=== PATIENT | female | born 1965 | race Caucasian/White ===

== ENCOUNTER 2017-01-31 05:57 | Inpatient (IN) | payer MEDICARE, OTHER ==
[2017-01-31] MEDS ORDERED: MORPHINE SULFATE 4 MG/ML SYRINGE IV STA (06:10)
[2017-01-31] MEDS ORDERED: PANTOPRAZOLE 40 MG/10 ML VIAL IVP STA (06:10)
[2017-01-31] MEDS ORDERED: SODIUM CHLORIDE 0.9% 1,000 ML IV STA ×3 (06:10→07:01)
[2017-01-31] MEDS ORDERED: ONDANSETRON 4 MG/2 ML VIAL IVP STA (06:10)
[2017-01-31] MEDS ORDERED: SODIUM CHLORIDE 0.9% 500 ML IV STA (06:10)
[2017-01-31 06:29] LABS: Basophils # (A) 0.1 k/uL (0-0.2); Basophils % (A) 1 %; CH 27.8; CHCM 33.6; Eosinophils # (A) 0.4 k/uL (0-0.7); Eosinophils % (A) 2 %; HCT 46.6 % (34.0-46.0); HDW 2.54; HGB 15.3 gm/dL (11.4-16.0); Luc # (Auto) 0.41; Luc % (Auto) 2; Lymphocytes # (A) 3.8 k/uL (1.0-4.8); Lymphocytes % (A) 18 %; MCH 27.3 pg (25.0-35.0); MCHC 32.8 g/dL (31.0-37.0); MCV 83.3 fL (80.0-100.0); Mean Platelet Volume 7.4; Monocytes # (A) 1.1 k/uL (0-1.0); Monocytes % (A) 5 %; Neutrophils # (A) 14.8 k/uL (1.3-7.7); Neutrophils % (A) 72 %; RBC 5.59 m/uL (3.80-5.40); RDW 15.1 % (11.5-15.5); WBC 20.5 k/uL (3.8-10.6)
[2017-01-31 06:39] LABS: ALT 125 U/L (9-52); AST 101 U/L (14-36); Alkaline Phosphatase 284 U/L (38-126); Anion Gap 11 mmol/L; Blood Urea Nitrogen 13 mg/dL (7-17); Calcium 9.7 mg/dL (8.4-10.2); Carbon Dioxide 24 mmol/L (22-30); Chloride 107 mmol/L (98-107); Glucose 158 mg/dL (74-99); Non-African American GFR(MDRD) >60 (>60 ml/min/1.73 sqM); Potassium 3.7 mmol/L (3.5-5.1); Sodium 142 mmol/L (137-145); Total Bilirubin 1.6 mg/dL (0.2-1.3); Total Protein 7.6 g/dL (6.3-8.2)
[2017-01-31 06:49] LABS: Creatine Kinase 132 U/L (30-135)
--- NOTE | 2017-01-31 06:58 | ED ---
General Adult HPI - General Source: patient, RN notes reviewed, old records reviewed Mode of arrival: wheelchair Limitations: no limitations <Richard Rivers - Last Filed: 01/31/17 07:02> <Richard Onofre - Last Filed: 01/31/17 10:03> - General Chief complaint: Abdominal Pain Stated complaint: Pancreatits Time Seen by Provider: 01/31/17 06:09 - History of Present Illness Initial comments: This is a 51-year-old female to the ER for reevaluation of dull pain, severe epigastric every day regrooved garlicky [place] range her back. Natriuretic upper quadrant. Wrapping around her abdomen. Positive nausea and positive vomiting. No fevers. Patient states she's had issues volatile before , denies symptoms related to alcohol coughing may be her gallbladder. Does still have her gallbladder. No diarrhea. No change in medications. Last time she had the similar symptoms was about 3 months ago but she lives in [facility], patient is not from here. (Richard Rivers) - Related Data Home Medications Medication Instructions Recorded Confirmed Atorvastatin Calcium [Lipitor] 40 mg PO HS 01/31/17 01/31/17 DULoxetine HCL [Cymbalta] 120 mg PO DAILY 01/31/17 01/31/17 Enalapril Maleate [Vasotec] 10 mg PO BID 01/31/17 01/31/17 Gabapentin [Neurontin] 300 mg PO TID 01/31/17 01/31/17 Hydrocodone/Acetaminophen [[place] 1 tab PO Q4H PRN 01/31/17 01/31/17 10-325] Morphine Sulfate [Morphine Sulfate 30 mg PO DAILY 01/31/17 01/31/17 ER] Omeprazole [PriLOSEC] 20 mg PO AC-BID 01/31/17 01/31/17 Sucralfate [Carafate] 1 gm PO ACHS 01/31/17 01/31/17 amLODIPine BESYLATE [Norvasc] 5 mg PO DAILY 01/31/17 01/31/17 Allergies Allergy/AdvReac Type Severity Reaction Status Date / Time meperidine [From Demerol] Allergy Swelling/ra Verified 01/31/17 07:42 sh/itching Review of Systems ROS Other: All systems not noted in ROS Statement are negative. <Richard Rivers - Last Filed: 01/31/17 07:02> ROS Other: All systems not noted in ROS Statement are negative. <Richard Onofre - Last Filed: 01/31/17 10:03> ROS Statement: Those systems with pertinent positive or pertinent negative responses have been documented in the HPI. Past Medical History Past Medical History: Hyperlipidemia, Hypertension Additional Past Medical History / Comment(s): pancreatitis History of Any Multi-Drug Resistant Organisms: None Reported Past Surgical History: Back Surgery Past Psychological History: No Psychological Hx Reported Smoking Status: Current every day smoker Past Alcohol Use History: Rare Past Drug Use History: None Reported <Richard Rivers - Last Filed: 01/31/17 07:02> General Exam Limitations: no limitations General appearance: alert, in no apparent distress Head exam: Present: atraumatic, normocephalic, normal inspection Eye exam: Present: normal appearance, PERRL, EOMI. Absent: scleral icterus, conjunctival injection, periorbital swelling ENT exam: Present: normal exam, mucous membranes moist Neck exam: Present: normal inspection. Absent: tenderness, meningismus, lymphadenopathy Respiratory exam: Present: normal lung sounds bilaterally. Absent: respiratory distress, wheezes, rales, rhonchi, stridor Cardiovascular Exam: Present: regular rate, normal rhythm, normal heart sounds. Absent: systolic murmur, diastolic murmur, rubs, gallop, clicks GI/Abdominal exam: Present: soft, normal bowel sounds. Absent: distended, tenderness, guarding, rebound, rigid Extremities exam: Present: normal inspection, full ROM, normal capillary refill. Absent: tenderness, pedal edema, joint swelling, calf tenderness Back exam: Present: normal inspection Neurological exam: Present: alert, oriented X3, CN II-XII intact Psychiatric exam: Present: normal affect, normal mood Skin exam: Present: warm, dry, intact, normal color. Absent: rash <Richard Rivers - Last Filed: 01/31/17 07:02> Course <Richard Rivers - Last Filed: 01/31/17 07:02> <Richard Onofre - Last Filed: 01/31/17 10:03> Vital Signs 01/31/17 01/31/17 01/31/17 06:00 06:24 07:10 Temperature 97.0 F L Pulse Rate 110 H 107 H 80 Respiratory 20 18 18 Rate Blood Pressure 126/83 159/72 145/70 O2 Sat by Pulse 95 97 100 Oximetry 01/31/17 01/31/17 08:20 08:34 Temperature 97.7 F Pulse Rate 95 Respiratory 18 Rate Blood Pressure 120/69 O2 Sat by Pulse 96 Oximetry - Reevaluation(s) Reevaluation #1: 01/31/17 07:02 Pain is much improved (Richard Rivers) Medical Decision Making - Lab Data Result diagrams: 01/31/17 06:16 01/31/17 06:16 <Richard Rivers - Last Filed: 01/31/17 07:02> - Lab Data Result diagrams: 01/31/17 06:16 01/31/17 06:16 <Richard Onofre - Last Filed: 01/31/17 10:03> - Medical Decision Making Patient has pancreatitis as well as cholecystitis. I spoke with Dr. Connolly he will see the patient on consult I spoke with Dr. Mosher he will admit the patient I wrote admitting orders and I consult to GI. (Richard Onofre) - Lab Data Lab Results 01/31/17 01/31/17 01/31/17 Range/Units 06:16 06:16 06:16 WBC 20.5 H (3.8-10.6) k/uL RBC 5.59 H (3.80-5.40) m/uL Hgb 15.3 (11.4-16.0) gm/dL Hct 46.6 H (34.0-46.0) % MCV 83.3 (80.0-100.0) fL MCH 27.3 (25.0-35.0) pg MCHC 32.8 (31.0-37.0) g/dL RDW 15.1 (11.5-15.5) % Plt Count 272 (150-450) k/uL Neutrophils % 72 % Lymphocytes % 18 % Monocytes % 5 % Eosinophils % 2 % Basophils % 1 % Neutrophils # 14.8 H (1.3-7.7) k/uL Lymphocytes # 3.8 (1.0-4.8) k/uL Monocytes # 1.1 H (0-1.0) k/uL Eosinophils # 0.4 (0-0.7) k/uL Basophils # 0.1 (0-0.2) k/uL Sodium 142 (137-145) mmol/L Potassium 3.7 (3.5-5.1) mmol/L Chloride 107 (98-107) mmol/L Carbon Dioxide 24 (22-30) mmol/L Anion Gap 11 mmol/L BUN 13 (7-17) mg/dL Creatinine 0.61 (0.52-1.04) mg/dL Est GFR (MDRD) Af Amer >60 (>60 ml/min/1.73 sqM) Est GFR (MDRD) Non-Af >60 (>60 ml/min/1.73 sqM) Glucose 158 H (74-99) mg/dL Calcium 9.7 (8.4-10.2) mg/dL Magnesium (1.6-2.3) mg/dL Total Bilirubin 1.6 H (0.2-1.3) mg/dL AST 101 H (14-36) U/L ALT 125 H (9-52) U/L Alkaline Phosphatase 284 H (38-126) U/L Total Creatine Kinase 132 (30-135) U/L CK-MB (CK-2) 1.8 (0.0-2.4) ng/mL CK-MB (CK-2) Rel Index 1.4 Troponin I <0.012 (0.000-0.034) ng/mL Total Protein 7.6 (6.3-8.2) g/dL Albumin 4.6 (3.5-5.0) g/dL Amylase 897 H* (30-110) U/L Lipase >87896 H (23-300) U/L 01/31/17 Range/Units 06:16 WBC (3.8-10.6) k/uL RBC (3.80-5.40) m/uL Hgb (11.4-16.0) gm/dL Hct (34.0-46.0) % MCV (80.0-100.0) fL MCH (25.0-35.0) pg MCHC (31.0-37.0) g/dL RDW (11.5-15.5) % Plt Count (150-450) k/uL Neutrophils % % Lymphocytes % % Monocytes % % Eosinophils % % Basophils % % Neutrophils # (1.3-7.7) k/uL Lymphocytes # (1.0-4.8) k/uL Monocytes # (0-1.0) k/uL Eosinophils # (0-0.7) k/uL Basophils # (0-0.2) k/uL Sodium (137-145) mmol/L Potassium (3.5-5.1) mmol/L Chloride (98-107) mmol/L Carbon Dioxide (22-30) mmol/L Anion Gap mmol/L BUN (7-17) mg/dL Creatinine (0.52-1.04) mg/dL Est GFR (MDRD) Af Amer (>60 ml/min/1.73 sqM) Est GFR (MDRD) Non-Af (>60 ml/min/1.73 sqM) Glucose (74-99) mg/dL Calcium (8.4-10.2) mg/dL Magnesium 1.8 (1.6-2.3) mg/dL Total Bilirubin (0.2-1.3) mg/dL AST (14-36) U/L ALT (9-52) U/L Alkaline Phosphatase (38-126) U/L Total Creatine Kinase (30-135) U/L CK-MB (CK-2) (0.0-2.4) ng/mL CK-MB (CK-2) Rel Index Troponin I (0.000-0.034) ng/mL Total Protein (6.3-8.2) g/dL Albumin (3.5-5.0) g/dL Amylase (30-110) U/L Lipase (23-300) U/L Disposition <Richard Rivers - Last Filed: 01/31/17 07:02> Time of Disposition: 10:02 <Richard Onofre - Last Filed: 01/31/17 10:03> Clinical Impression: Cholelithiasis with choledocholithiasis, Pancreatitis Disposition: ADMITTED IP TO THIS [facility] Referrals: Nonstaff,Physician [Primary Care Provider] - 1-2 days
[2017-01-31 06:59] LABS: Amylase 897 U/L (30-110)
[2017-01-31] MEDS ORDERED: LORazepam 2 MG/ML SYRINGE IV STA (07:01)
[2017-01-31] MEDS ORDERED: MORPHINE SULFATE 4 MG/ML SYRINGE IVP STA (07:01)
[2017-01-31 07:03] LABS: Creatine Kinase MB 1.8 ng/mL (0.0-2.4); Troponin I <0.012 ng/mL (0.000-0.034)
[2017-01-31] MEDS ORDERED: HYDROmorphone 1 MG/ML 1 ML SYRINGE IVP STA (07:11)
[2017-01-31] MEDS ORDERED: PIPERACILLIN-TAZOBACTAM 3.375 GM in DEXTROSE/WATER 1 50ML.BAG IVPB STA (07:14)
--- NOTE | 2017-01-31 08:19 | US ---
EXAMINATION TYPE: US gallbladder DATE OF EXAM: 01/31/2017 COMPARISON: NONE CLINICAL HISTORY: 51-year-old female with Pain. Chest and back pain and N/V x 1 day TECHNIQUE: Multiple sonographic images of the right upper quadrant are obtained. FINDINGS: Liver Length: 14.3 cm Gallbladder Wall: 0.3 cm CBD: 1.0 cm Right Kidney: 10.4 x 5.4 x 5.4 cm Pancreas: visualized portions wnl, head and tail limited by overlying midline bowel gas Liver: Increased echogenicity and heterogeneity. No focal lesion seen. Gallbladder: There is dependent gravel or small calculi. Some images show mild gallbladder wall thic kening measuring up to 5.0 mm. There is mild hydropic changes as well and sonographic Hensley sign is reported positive. CBD: dilated at 1.0cm Right Kidney: No hydronephrosis. Visualized portions wnl, inferior pole limited by overlying bowel g as IMPRESSION: 1. Gallbladder is mildly hydropic with layering calculi, mild wall thickening, and a positive sonogra phic Hensley sign. The constellation of findings suggest acute cholecystitis. Further clinical correla tion recommended. 2. Bile duct dilated up to 1 cm. Correlate with alkaline phosphatase and bilirubin levels to exclude biliary obstruction such as from choledocholithiasis. 3. Hepatic steatosis.
[2017-01-31] MEDS ORDERED: SODIUM CHLORIDE 0.9% 1,000 ML IV ONE (10:03)
--- NOTE | 2017-01-31 11:05 | P.GSCN ---
History of Present Illness Consult date: 01/31/17 Reason for Consult: Abdominal pain History of present illness: Patient is a 51-year-old female who presents with severe abdominal pain and left upper quadrantwith nausea and vomiting. She presented with a less than a month ago with the same symptoms at an outside hospital and [facility] where she was diagnosed having pancreatitis she was discharged. Her symptoms are not improved at that time. There is no history of shivering chills at that time no history of jaundice rectal that time. She presents after being transferred due to the recurrent symptoms. There is some nausea vomitingno history of hematochezia hematemesis or melena. Review of Systems - Constitutional Reports anorexia, Reports malaise, Reports poor appetite, Reports weight loss - EENT Eyes: denies blurred vision Ears, nose, mouth and throat: Denies dysphagia - Cardiovascular Denies chest pain, Denies shortness of breath - Respiratory Denies cough, Denies 7 - Gastrointestinal Reports abdominal pain, Reports dyspepsia, Reports loss of appetite, Reports nausea, Reports vomiting, Denies excessive gas, Denies heartburn, Denies hematemesis, Denies hematochezia - Musculoskeletal Denies gait dysfunction - Integumentary Denies rash, Denies unusual bruising - Neurological Denies headaches, Denies syncope - Hematologic/Lymphatic Denies easy bleeding, Denies easy bruising Past Medical History Past Medical History: Asthma, COPD, GERD/Reflux, Hyperlipidemia, Hypertension, Osteoarthritis (OA) Additional Past Medical History / Comment(s): Pt recently admitted to [facility] for pancreatitis, past gastric ulcers, chronic back pain, arthritis in back and bilateral hands, bronchitis, pleurisy, post menopausal. History of Any Multi-Drug Resistant Organisms: None Reported Past Surgical History: Back Surgery, Tubal Ligation Additional Past Surgical History / Comment(s): Lumbar surgery, EGD/colonoscopy, D&C. Past Anesthesia/Blood Transfusion Reactions: No Reported Reaction Past Psychological History: No Psychological Hx Reported Additional Psychological History / Comment(s): Pt resides in [place], [place]. She lives with her significant other. She is independent. Smoking Status: Current every day smoker Past Alcohol Use History: None Reported Additional Past Alcohol Use History / Comment(s): Pt states she started smoking in 1978 and is a ppd smoker. She denies alcohol use. Past Drug Use History: None Reported - Past Family History Father Family Medical History: Coronary Artery Disease (CAD), CVA/TIA, Diabetes Mellitus Additional Family Medical History / Comment(s): Father had 3 vessel CABG, IDDM and CVAs. Mother Family Medical History: Coronary Artery Disease (CAD), Diabetes Mellitus Additional Family Medical History / Comment(s): Mother had NIDDM and coronary stenting. Medications and Allergies Home Medications Medication Instructions Recorded Confirmed Type Atorvastatin Calcium [Lipitor] 40 mg PO HS 01/31/17 01/31/17 History DULoxetine HCL [Cymbalta] 120 mg PO DAILY 01/31/17 01/31/17 History Enalapril Maleate [Vasotec] 10 mg PO BID 01/31/17 01/31/17 History Gabapentin [Neurontin] 300 mg PO TID 01/31/17 01/31/17 History Hydrocodone/Acetaminophen [[place] 1 tab PO Q4H PRN 01/31/17 01/31/17 History 10-325] Morphine Sulfate [Morphine Sulfate 30 mg PO DAILY 01/31/17 01/31/17 History ER] Omeprazole [PriLOSEC] 20 mg PO AC-BID 01/31/17 01/31/17 History Sucralfate [Carafate] 1 gm PO ACHS 01/31/17 01/31/17 History amLODIPine BESYLATE [Norvasc] 5 mg PO DAILY 01/31/17 01/31/17 History Allergies Allergy/AdvReac Type Severity Reaction Status Date / Time meperidine [From Demerol] Allergy Swelling/ra Verified 01/31/17 07:42 sh/itching Surgical - Exam Vital Signs Temp Pulse Resp BP Pulse Ox 97.0 F L 110 H 20 126/83 95 01/31/17 06:00 01/31/17 06:00 01/31/17 06:00 01/31/17 06:00 01/31/17 06:00 - General well developed, obese - Eyes PERRL, normal ocular movement - ENT normal pinna, normal nares, no hearing loss - Neck no masses, trachea midline - Respiratory normal expansion, normal respiratory effort - Cardiovascular Rhythm: regular - Abdomen Abdomen: tender, no guarding, no rebound, distended - Integumentary no rash, no growths - Neurologic normal coordination, normal sensation - Musculoskeletal normal posture - Psychiatric oriented to time, oriented to person, oriented to place, speech is normal, memory intact Results - Labs 01/31/17 06:16 01/31/17 06:16 Abnormal Lab Results - Last 24 Hours (Table) 01/31/17 01/31/17 Range/Units 06:16 06:16 WBC 20.5 H (3.8-10.6) k/uL RBC 5.59 H (3.80-5.40) m/uL Hct 46.6 H (34.0-46.0) % Neutrophils # 14.8 H (1.3-7.7) k/uL Monocytes # 1.1 H (0-1.0) k/uL Glucose 158 H (74-99) mg/dL Total Bilirubin 1.6 H (0.2-1.3) mg/dL AST 101 H (14-36) U/L ALT 125 H (9-52) U/L Alkaline Phosphatase 284 H (38-126) U/L Amylase 897 H* (30-110) U/L Lipase >65131 H (23-300) U/L Diabetes panel 01/31/17 Range/Units 06:16 Sodium 142 (137-145) mmol/L Potassium 3.7 (3.5-5.1) mmol/L Chloride 107 (98-107) mmol/L Carbon Dioxide 24 (22-30) mmol/L BUN 13 (7-17) mg/dL Creatinine 0.61 (0.52-1.04) mg/dL Glucose 158 H (74-99) mg/dL Calcium 9.7 (8.4-10.2) mg/dL AST 101 H (14-36) U/L ALT 125 H (9-52) U/L Alkaline Phosphatase 284 H (38-126) U/L Total Protein 7.6 (6.3-8.2) g/dL Albumin 4.6 (3.5-5.0) g/dL Calcium panel 01/31/17 Range/Units 06:16 Calcium 9.7 (8.4-10.2) mg/dL Albumin 4.6 (3.5-5.0) g/dL Pituitary panel 01/31/17 Range/Units 06:16 Sodium 142 (137-145) mmol/L Potassium 3.7 (3.5-5.1) mmol/L Chloride 107 (98-107) mmol/L Carbon Dioxide 24 (22-30) mmol/L BUN 13 (7-17) mg/dL Creatinine 0.61 (0.52-1.04) mg/dL Glucose 158 H (74-99) mg/dL Calcium 9.7 (8.4-10.2) mg/dL Adrenal panel 01/31/17 Range/Units 06:16 Sodium 142 (137-145) mmol/L Potassium 3.7 (3.5-5.1) mmol/L Chloride 107 (98-107) mmol/L Carbon Dioxide 24 (22-30) mmol/L BUN 13 (7-17) mg/dL Creatinine 0.61 (0.52-1.04) mg/dL Glucose 158 H (74-99) mg/dL Calcium 9.7 (8.4-10.2) mg/dL Total Bilirubin 1.6 H (0.2-1.3) mg/dL AST 101 H (14-36) U/L ALT 125 H (9-52) U/L Alkaline Phosphatase 284 H (38-126) U/L Total Protein 7.6 (6.3-8.2) g/dL Albumin 4.6 (3.5-5.0) g/dL Assessment and Plan (1) Tobacco dependence Status: Acute (2) Cholelithiasis with choledocholithiasis Status: Acute (3) Pancreatitis Status: Acute Plan: The patient has acute prostatitis with choledocholithiasis and dilated CBD. I recommended GI consult. Recommend nothing by mouth with IV fluids and conservative management for pancreatitis. Once the Aquacel down I will recommend a laparoscopic cholecystectomy was slightly before she is discharged from this admission since this is her second admission for acute p pancreatitis. The patient recommended is pretty severe and I explained to her that this is life-threatening. She understands. She still little double minded but staying in the hospital for treatment..
[2017-01-31] MEDS ORDERED: TEMAZEPAM 15 MG CAP PO PRN (14:46)
[2017-01-31] MEDS ORDERED: METOCLOPRAMIDE 5 MG/ML 2 ML VIAL IVP PRN (14:46)
[2017-01-31] MEDS ORDERED: LORazepam 0.5 MG TAB PO PRN (14:46)
--- NOTE | 2017-01-31 15:13 | XR ---
EXAMINATION TYPE: XR chest 1V portable DATE OF EXAM: 01/31/2017 Comparison: None Clinical History: 51 year-old female shortness of breath, CHF Findings: Heart is normal size. Aorta within normal limits. Pulmonary vasculature within normal limits. Some [facility] [place] atelectasis in the lower lungs. No consolidation or pleural effusion. Dextroscoliosis centered along the lower thoracic spine. Impression: No acute cardiopulmonary process.
[2017-01-31] MEDS: HYDROmorphone 1 MG/ML 1 ML SYRINGE IVP PRN (15:19)
[2017-01-31 15:20] LABS: Appearance,Urine Clear (Clear); Bilirubin,Urine 1+ (Negative); Glucose,Urine (UA) Negative (Negative); Ketones,Urine Negative (Negative); Leukocyte Esterase,Urine Negative (Negative); Nitrite,Urine Negative (Negative); PH, Urine 7.5 (5.0-8.0); Particle Count 498; Protein,Urine Negative (Negative); RBC,Urine 8 /hpf (0-5); Specific Gravity,Urine 1.011 (1.001-1.035); Squamous Epithelial Cell,Urine <1 /hpf (0-4); UA Billing (MACRO vs. MICRO) MICRO; WBC,Urine <1 /hpf (0-5)
[2017-01-31] MEDS: PANTOPRAZOLE 40 MG/10 ML VIAL IVP SCH ×2 (15:20→21:49)
[2017-01-31] MEDS: IOHEXOL 350 MG/ML 25 ML BOTTLE (ORAL USE) PO PRN ×2 (15:20→16:22)
[2017-01-31] MEDS: HEPARIN SODIUM,PORCINE 5,000 UNIT/ML 1 ML VIAL SQ SCH ×2 (15:21→21:48)
[2017-01-31] MEDS: MEROPENEM 2 GM in SODIUM CHLORIDE 0.9% 100 ML IVPB SCH (15:42)
[2017-01-31] MEDS: MORPHINE SULFATE ER 30 MG TABLET PO SCH (15:42)
[2017-01-31] MEDS: ACETAMINOPHEN TAB 325 MG TAB PO PRN (15:42)
[2017-01-31 15:49] LABS: Prothrombin Time 10.6 sec (9.0-12.0)
--- NOTE | 2017-01-31 17:35 | CT ---
EXAMINATION TYPE: CT abdomen pelvis wo con DATE OF EXAM: 01/31/2017 COMPARISON: NONE HISTORY: Mid abdominal pain. CT DLP: 1080.00 mGycm Automated exposure control for dose reduction was used. TECHNIQUE: Helical acquisition of images was performed from the lung bases through the pelvis. FINDINGS: The lung bases are clear. There is no pleural effusion. Heart size is normal. There is no pericardial effusion. The liver spleen pancreas appear normal. Gallbladder is large and measures 5 cm in diameter. There is no adrenal mass. Kidneys show no hydronephrosis. Kidneys have normal size and contour. There is very slight increased density in the retroperitoneal fat around the pancreas that could relate to mild in flammation. I see no intestinal wall thickening. There are no dilated loops. Bladder distends smoothly. There is no pelvic mass. Abdominal aorta is atheromatous. There is no retroperitoneal adenopathy. There are sp ondylotic changes in the lumbar spine. There is osteosclerosis at the L3-4 disc. There is disc prosth esis at L4-5. There is atherosclerotic vascular calcification in the abdominal aorta. IMPRESSION: GALLBLADDER IS DILATED THAT IS SUGGESTIVE OF CHOLECYSTITIS. NO DILATED DUCTS. THERE IS VERY SLIGHT INCREASED DENSITY IN THE PERIPANCREATIC FAT THAT IS EQUIVOCAL FOR MILD PANCREATI TIS. NO EVIDENCE OF PANCREATIC MASS. ATHEROSCLEROTIC VASCULAR DISEASE.
[2017-01-31 18:23] VITALS: BMI 29.4
[2017-01-31] MEDS: HYDROcodone/APAP 5-325MG 1 EACH TAB PO PRN (22:38)
[2017-02-01] MEDS: MEROPENEM 2 GM in SODIUM CHLORIDE 0.9% 100 ML IVPB SCH ×3 (00:21→16:23)
[2017-02-01 02:46] LABS: Basophils % (A) 0 %; CH 27.4; CHCM 32.8; Eosinophils # (A) 0.1 k/uL (0-0.7); Eosinophils % (A) 1 %; HCT 39.7 % (34.0-46.0); HDW 2.45; HGB 13.9 gm/dL (11.4-16.0); Luc # (Auto) 0.29; Luc % (Auto) 3; Lymphocytes # (A) 2.3 k/uL (1.0-4.8); Lymphocytes % (A) 23 %; MCH 29.5 pg (25.0-35.0); MCHC 35.1 g/dL (31.0-37.0); Mean Platelet Volume 7.4; Monocytes # (A) 0.7 k/uL (0-1.0); Monocytes % (A) 7 %; Neutrophils # (A) 6.7 k/uL (1.3-7.7); Neutrophils % (A) 66 %; RBC 4.72 m/uL (3.80-5.40); RDW 15.1 % (11.5-15.5); WBC 10.2 k/uL (3.8-10.6); WBC (Perox) 9.77
[2017-02-01 03:04] LABS: ALT 469 U/L (9-52); AST 421 U/L (14-36); Alkaline Phosphatase 315 U/L (38-126); Amylase 174 U/L (30-110); Anion Gap 9 mmol/L; Blood Urea Nitrogen 8 mg/dL (7-17); Calcium 8.4 mg/dL (8.4-10.2); Carbon Dioxide 24 mmol/L (22-30); Chloride 107 mmol/L (98-107); Cholesterol 109 mg/dL (<200); Glucose 90 mg/dL (74-99); HDL Cholesterol 53 mg/dL (40-60); Magnesium 1.7 mg/dL (1.6-2.3); Non-African American GFR(MDRD) >60 (>60 ml/min/1.73 sqM); Potassium 3.3 mmol/L (3.5-5.1); Sodium 140 mmol/L (137-145); Total Bilirubin 4.5 mg/dL (0.2-1.3); Triglycerides 69 mg/dL (<150)
[2017-02-01] MEDS: ACETAMINOPHEN TAB 325 MG TAB PO PRN (06:02)
[2017-02-01] MEDS: HYDROmorphone 1 MG/ML 1 ML SYRINGE IVP PRN ×2 (06:16→21:39)
[2017-02-01] MEDS: HEPARIN SODIUM,PORCINE 5,000 UNIT/ML 1 ML VIAL SQ SCH ×2 (10:01→21:33)
[2017-02-01] MEDS: LISINOPRIL 20 MG TAB PO SCH (10:01)
[2017-02-01] MEDS: PANTOPRAZOLE 40 MG/10 ML VIAL IVP SCH ×2 (10:01→21:33)
[2017-02-01] MEDS: MORPHINE SULFATE ER 30 MG TABLET PO SCH (10:02)
[2017-02-01] MEDS: DULoxetine HCL 60 MG CAPSULE.DR PO SCH (10:02)
--- NOTE | 2017-02-01 12:57 | P.CONS ---
History of Present Illness - Reason for Consult Consult date: 01/31/17 - History of Present Illness The patient is a 51-year-old female who presents with severe abdominal pain with nausea and vomiting. She had similar presention a month ago with the same symptoms [facility] she was diagnosed having pancreatitis she was discharged. There is no history of fever or chills at this time or history of jaundice. There is some nausea vomiting no history of hematochezia hematemesis or melena. Review of Systems REVIEW OF SYSTEMS: CARDIOPULMONARY: No chest pain or shortness of breath. GENITOURINARY: No dysuria or hematuria. MUSCULOSKELETAL: Unremarkable. SKIN: Unremarkable. ENDOCRINE: Unremarkable. PSYCHIATRIC: Unremarkable. NEUROLOGY: Unremarkable. ENT: Vision unremarkable. CONSTITUTIONAL: No recent weight loss. No fever, chills, night sweats. Past Medical History Past Medical History: Asthma, COPD, GERD/Reflux, Hyperlipidemia, Hypertension, Osteoarthritis (OA) Additional Past Medical History / Comment(s): Pt recently admitted to [facility] for pancreatitis, past gastric ulcers, chronic back pain, arthritis in back and bilateral hands, bronchitis, pleurisy, post menopausal. History of Any Multi-Drug Resistant Organisms: None Reported Past Surgical History: Back Surgery, Tubal Ligation Additional Past Surgical History / Comment(s): Lumbar surgery, EGD/colonoscopy, D&C. Past Anesthesia/Blood Transfusion Reactions: No Reported Reaction Past Psychological History: No Psychological Hx Reported Additional Psychological History / Comment(s): Pt resides in [place], [place]. She lives with her significant other. She is independent. Smoking Status: Current every day smoker Past Alcohol Use History: None Reported Additional Past Alcohol Use History / Comment(s): Pt states she started smoking in 1978 and is a ppd smoker. She denies alcohol use. Past Drug Use History: None Reported - Past Family History Father Family Medical History: Coronary Artery Disease (CAD), CVA/TIA, Diabetes Mellitus Additional Family Medical History / Comment(s): Father had 3 vessel CABG, IDDM and CVAs. Mother Family Medical History: Coronary Artery Disease (CAD), Diabetes Mellitus Additional Family Medical History / Comment(s): Mother had NIDDM and coronary stenting. Medications and Allergies Home Medications Medication Instructions Recorded Confirmed Type Atorvastatin Calcium [Lipitor] 40 mg PO HS 01/31/17 01/31/17 History DULoxetine HCL [Cymbalta] 120 mg PO DAILY 01/31/17 01/31/17 History Enalapril Maleate [Vasotec] 10 mg PO BID 01/31/17 01/31/17 History Gabapentin [Neurontin] 300 mg PO TID 01/31/17 01/31/17 History Hydrocodone/Acetaminophen [[place] 1 tab PO Q4H PRN 01/31/17 01/31/17 History 10-325] Morphine Sulfate [Morphine Sulfate 30 mg PO DAILY 01/31/17 01/31/17 History ER] Omeprazole [PriLOSEC] 20 mg PO AC-BID 01/31/17 01/31/17 History Sucralfate [Carafate] 1 gm PO ACHS 01/31/17 01/31/17 History amLODIPine BESYLATE [Norvasc] 5 mg PO DAILY 01/31/17 01/31/17 History Allergies Allergy/AdvReac Type Severity Reaction Status Date / Time meperidine [From Demerol] Allergy Swelling/ra Verified 01/31/17 07:42 sh/itching Physical Exam Vitals: Vital Signs Temp Pulse Pulse Resp BP BP Pulse Ox 01/31/17 23:00 101.4 F H 98 19 110/60 92 L 01/31/17 17:30 101.1 F H 01/31/17 16:00 92 16 01/31/17 15:00 102.4 F H 92 16 118/70 94 L 01/31/17 12:48 99.2 F 86 18 133/75 97 01/31/17 10:06 98.2 F 93 18 139/76 95 01/31/17 09:30 93 18 98 01/31/17 08:34 97.7 F 01/31/17 08:20 95 18 120/69 96 01/31/17 07:10 80 18 145/70 100 01/31/17 06:24 107 H 18 159/72 97 01/31/17 06:00 97.0 F L 110 H 20 126/83 95 Intake and Output 01/31/17 01/31/17 02/01/17 14:59 22:59 06:59 Other: Voiding Method Toilet Toilet # Voids 2 2 Weight 75.296 kg Patient Weight 02/01/17 06:59 Weight 75.296 kg On physical examination, patient appears comfortable in no apparent distress. Vital signs are stable. HEENT: Unremarkable. Conjunctivae pink. Sclerae anicteric. Oral cavity no lesions. NECK: No JVD or lymph node enlargement. CHEST: Clear to auscultation. HEART: Regular rate and rhythm. ABDOMEN: Soft. Bowel sounds are positive. No organomegaly. EXTREMITIES: No pedal edema. SKIN: No rashes. NEUROLOGIC: Alert and oriented x3. No focal deficits. Results CBC & Chem 7: 02/01/17 02:33 02/01/17 02:33 Labs: Abnormal Lab Results - Last 24 Hours (Table) 01/31/17 01/31/17 01/31/17 Range/Units 06:16 06:16 15:05 WBC 20.5 H (3.8-10.6) k/uL RBC 5.59 H (3.80-5.40) m/uL Hct 46.6 H (34.0-46.0) % Neutrophils # 14.8 H (1.3-7.7) k/uL Monocytes # 1.1 H (0-1.0) k/uL Glucose 158 H (74-99) mg/dL Total Bilirubin 1.6 H (0.2-1.3) mg/dL AST 101 H (14-36) U/L ALT 125 H (9-52) U/L Alkaline Phosphatase 284 H (38-126) U/L Amylase 897 H* (30-110) U/L Lipase >53546 H (23-300) U/L Urine Blood Trace H (Negative) Urine Bilirubin 1+ H (Negative) Urine RBC 8 H (0-5) /hpf Urine Opiates Screen Detected H (NotDetected) U Marijuana (THC) Screen Detected H (NotDetected) 01/31/17 Range/Units 15:11 WBC (3.8-10.6) k/uL RBC (3.80-5.40) m/uL Hct (34.0-46.0) % Neutrophils # (1.3-7.7) k/uL Monocytes # (0-1.0) k/uL Glucose (74-99) mg/dL Total Bilirubin (0.2-1.3) mg/dL AST (14-36) U/L ALT (9-52) U/L Alkaline Phosphatase (38-126) U/L Amylase (30-110) U/L Lipase 1914 H (23-300) U/L Urine Blood (Negative) Urine Bilirubin (Negative) Urine RBC (0-5) /hpf Urine Opiates Screen (NotDetected) U Marijuana (THC) Screen (NotDetected) Assessment and Plan Plan: 51-year old female with picture of GS pancreatitis. A retained CBD stone should be considered. Agree with your current management. I will plan an ERCP in the next 24-48 hours based on her course.
[2017-02-01] MEDS: HYDROcodone/APAP 5-325MG 1 EACH TAB PO PRN ×2 (13:36→18:37)
--- NOTE | 2017-02-01 15:20 | P.PN ---
Subjective Principal diagnosis: Acute pancreatitis with choledocholithiasis All the patient's feeling much better. His nausea vomiting. The pain is well- controlled Objective - Vital Signs Vital signs: Vital Signs Temp 97.9 F 02/01/17 07:00 Pulse 88 02/01/17 09:00 Resp 16 02/01/17 09:00 BP 117/66 02/01/17 07:00 Pulse Ox 90 L 02/01/17 07:00 Intake & Output 01/31/17 02/01/17 02/01/17 18:59 06:59 18:59 Intake Total 1130 Balance 1130 Weight 75.296 kg Intake: Intake, IV Titration 1100 Amount Meropenem 2 gm In Sodium 100 Chloride 0.9% 100 ml @ 200 mls/hr IVPB Q8HR [facility] Rx#:[id number] Sodium Chloride 0.9% 1, 1000 000 ml @ 100 mls/hr IV . Q10H ONE Rx#:[id number] Oral 30 Other: Voiding Method Toilet Toilet Toilet # Voids 2 3 # Bowel Movements 1 - Constitutional General appearance: Present: no acute distress - EENT Eyes: Present: PERRLA, scleral icterus - Cardiovascular Rhythm: regular - Gastrointestinal Gastrointestinal Comment(s): Abdomen is soft and nontender. - Labs CBC & Chem 7: 02/01/17 02:33 02/01/17 02:33 Labs: Abnormal Lab Results - Last 24 Hours (Table) 01/31/17 01/31/17 02/01/17 Range/Units 15:05 15:11 02:33 Potassium 3.3 L (3.5-5.1) mmol/L Total Bilirubin 4.5 H (0.2-1.3) mg/dL AST 421 H (14-36) U/L ALT 469 H (9-52) U/L Alkaline Phosphatase 315 H (38-126) U/L Total Protein 6.0 L (6.3-8.2) g/dL Albumin 3.4 L (3.5-5.0) g/dL Amylase 174 H (30-110) U/L Lipase 1914 H (23-300) U/L Urine Blood Trace H (Negative) Urine Bilirubin 1+ H (Negative) Urine RBC 8 H (0-5) /hpf Urine Opiates Screen Detected H (NotDetected) U Marijuana (THC) Screen Detected H (NotDetected) Microbiology - Last 24 Hours (Table) 01/31/17 15:05 Urine Culture - Preliminary Urine,Clean Catch Assessment and Plan (1) Tobacco dependence Status: Acute (2) Cholelithiasis with choledocholithiasis Status: Acute (3) Pancreatitis Status: Acute Plan: Overall the patient is doing well however her bilirubin has gone up from 1.5- 4.5 and was dilated CBD is strongly suspected choledocholithiasis. I appreciate Dr. Molina's note on and anticipate an ERCP for stone extraction soon. This was the ERCPs done then we can go ahead and recommend the care of symptomatic gallstone disease with a laparoscopic cholecystectomy. This is been explained to her in detail she understands and is willing to proceed.
[2017-02-02] MEDS: HYDROcodone/APAP 5-325MG 1 EACH TAB PO PRN ×3 (00:33→17:38)
[2017-02-02 07:43] LABS: Basophils % (A) 0 %; CH 27.3; CHCM 32.8; Eosinophils # (A) 0.2 k/uL (0-0.7); Eosinophils % (A) 3 %; HCT 39.5 % (34.0-46.0); HDW 2.53; HGB 13.2 gm/dL (11.4-16.0); Luc # (Auto) 0.18; Luc % (Auto) 3; Lymphocytes # (A) 1.4 k/uL (1.0-4.8); Lymphocytes % (A) 24 %; MCH 27.9 pg (25.0-35.0); MCHC 33.4 g/dL (31.0-37.0); MCV 83.4 fL (80.0-100.0); Mean Platelet Volume 7.2; Monocytes # (A) 0.3 k/uL (0-1.0); Monocytes % (A) 6 %; Neutrophils # (A) 3.6 k/uL (1.3-7.7); Neutrophils % (A) 63 %; RBC 4.73 m/uL (3.80-5.40); RDW 14.6 % (11.5-15.5); WBC 5.7 k/uL (3.8-10.6)
[2017-02-02] MEDS: MEROPENEM 2 GM in SODIUM CHLORIDE 0.9% 100 ML IVPB SCH ×5 (07:54→22:43)
[2017-02-02] MEDS: PANTOPRAZOLE 40 MG/10 ML VIAL IVP SCH ×2 (07:55→20:39)
[2017-02-02] MEDS: HEPARIN SODIUM,PORCINE 5,000 UNIT/ML 1 ML VIAL SQ SCH ×2 (07:55→20:39)
[2017-02-02] MEDS: LISINOPRIL 20 MG TAB PO SCH (07:55)
[2017-02-02] MEDS: DULoxetine HCL 60 MG CAPSULE.DR PO SCH (07:55)
[2017-02-02] MEDS: HYDROmorphone 1 MG/ML 1 ML SYRINGE IVP PRN ×3 (07:55→19:51)
[2017-02-02 08:09] LABS: ALT 282 U/L (9-52); AST 131 U/L (14-36); Alkaline Phosphatase 286 U/L (38-126); Amylase 77 U/L (30-110); Anion Gap 11 mmol/L; Blood Urea Nitrogen 8 mg/dL (7-17); Calcium 8.4 mg/dL (8.4-10.2); Carbon Dioxide 22 mmol/L (22-30); Chloride 106 mmol/L (98-107); Glucose 80 mg/dL (74-99); Non-African American GFR(MDRD) >60 (>60 ml/min/1.73 sqM); Sodium 139 mmol/L (137-145); Total Bilirubin 1.5 mg/dL (0.2-1.3)
[2017-02-02] MEDS ORDERED: Potassium Replacement Protocol 1 EACH MISC MISCELLANE PRN (08:29)
--- NOTE | 2017-02-02 08:41 | HP ---
DATE OF ADMISSION: 01/31/17 CHIEF COMPLAINT: Abdominal and back pain. HISTORY OF PRESENT ILLNESS: This 51 year old woman with past medical history of multiple medical problems recently apparent had an episode of pancreatitis in [facility]. The patient admitted and discharged home. The patient also has asthma and COPD. The patient apparently was camping near [place] and the patient complaining of upper abdominal pain across the abdomen and also back pain. The patient came to [facility] and evaluated for cholelithiasis , choledocholithiasis as well as possible features of acute pancreatitis also. The patient admitted for further evaluation and treatment. Ultrasound of the gallbladder showed gallbladder calculi and bile duct was also dilated. The patient was admitted for further evaluation. Surgery and gastroenterology evaluation in progress. The patient complaining of severe pain as mentioned earlier. There is no history of fever, rigors or chills. No history of headache , loss of consciousness or seizures at this time. PAST MEDICAL HISTORY: History of recent pancreatitis, asthma, COPD, GERD, hypertension, hyperlipidemia, and other multiple medical issues. MEDICATIONS: 1. Cymbalta 120 mg po daily. 2. Vasotec 10 mg po b.i.d. 3. Hardin 10 mg q4h prn 4. Carafate 1 gm a.c. and q.h.s. 5. Norvasc 5 mg daily. 6. Morphine sulfate 30 mg po daily. 7. Lipitor 40 mg q.h.s. 8. Prilosec 20 mg a.c. b.i.d. 9. Neurontin 300 mg t.i.d. ALLERGIES: DEMEROL. FAMILY HISTORY: History of CAD, CVA, TIA, diabetes. SOCIAL HISTORY: History of smoking. No history of alcohol intake. REVIEW OF SYSTEMS: ENT: No diminished vision, no diminished hearing. CARDIOVASCULAR: No angina. RESPIRATORY: No cough. GI: No nausea or vomiting. : No dysuria. NERVOUS SYSTEM: No numbness or weakness. ALLERGY/IMMUNOLOGY: No asthma or hayfever. MUSCULOSKELETAL: As mentioned earlier. HEMATOLOGY/ONCOLOGY: No history of anemia. ENDOCRINE: No history of diabetes or hypothyroidism. CONSTITUTIONAL: As mentioned earlier. DERMATOLOGY: Negative. RHEUMATOLOGY: Negative. PSYCHIATRY: As mentioned earlier. PHYSICAL EXAMINATION: The patient is alert and oriented times three. Pulse 93. Blood pressure 139/76. Respiratory rate 18. Temperature 98.3, pulse ox 94% on room air. HEENT: Conjunctivae normal. NECK: No JVD. CARDIOVASCULAR: S1, S2. RESPIRATORY: Breath sounds diminished at the bases. Scattered rhonchi and crackles. ABDOMEN: soft, diffuse tenderness present. No guarding or rigidity. Most of the tenderness in the upper part of the abdomen. No hepatosplenomegaly. No ascites. LEGS: No edema. No swelling. NERVOUS SYSTEM: Higher functions as mentioned earlier. Moves all four limbs. No focal or motor deficits. LYMPHATICS: No lymph nodes palpable in the neck, axilla or groin. SKIN: No ulcer, rash or bleeding. JOINTS: No active deforming arthroplasty. LABS: WBC 20.9. Otherwise, AST 104, ALT 124, alk phos 284. Amylase 897 and lipase. ASSESSMENT: 1. Acute severe pancreatitis with SARS. 2. Possible cholelithiasis and choledocholithiasis. 3. Increased AST, ALT, alk phos. 4. Increased WBC. 5. History of asthma, chronic obstructive pulmonary disease. 6. Hypertension. 7. Hyperlipidemia. RECOMMENDATIONS AND DISCUSSION: In this 51 year old woman who presented with multiple complex medical issues, we will monitor the patient closely. Continue with NPO. Surgical and gastroenterology evaluation. Symptomatic treatment, pain medication. Empiric antibiotics. Prognosis guarded. further recommendations to follow. DVT prophylaxis. See orders for details. MTDD
[2017-02-02] MEDS: POTASSIUM CHLORIDE 10 MEQ, LIDOCAINE 2% INJ 10 MG in SODIUM CHLORIDE 0.9% 100 ML IV SCH ×2 (09:06→10:28)
[2017-02-02] MEDS: MORPHINE SULFATE ER 30 MG TABLET PO SCH (09:06)
[2017-02-02 14:34] LABS: Anion Gap 10 mmol/L; Blood Urea Nitrogen 9 mg/dL (7-17); Calcium 8.5 mg/dL (8.4-10.2); Carbon Dioxide 25 mmol/L (22-30); Chloride 105 mmol/L (98-107); Glucose 69 mg/dL (74-99); Non-African American GFR(MDRD) >60 (>60 ml/min/1.73 sqM); Potassium 3.5 mmol/L (3.5-5.1); Sodium 140 mmol/L (137-145)
--- NOTE | 2017-02-02 18:47 | P.PN ---
Subjective Principal diagnosis: Acute pancreatitis with choledocholithiasis All the patient's feeling much better. His nausea vomiting. The pain is well- controlled Objective - Vital Signs Vital signs: Vital Signs Temp 98.5 F 02/02/17 15:00 Pulse 77 02/02/17 15:00 Resp 16 02/02/17 15:00 BP 121/67 02/02/17 15:00 Pulse Ox 95 02/02/17 15:00 Intake & Output 02/01/17 02/02/17 02/02/17 18:59 06:59 18:59 Intake Total 1130 Output Total 1 Balance 1129 Weight 75.296 kg Intake: Intake, IV Titration 1100 Amount Meropenem 2 gm In Sodium 100 Chloride 0.9% 100 ml @ 200 mls/hr IVPB Q8HR [facility] Rx#:[id number] Sodium Chloride 0.9% 1, 1000 000 ml @ 100 mls/hr IV . Q10H ONE Rx#:[id number] Oral 30 Output: Urine/Stool Mix 1 Other: Voiding Method Toilet Toilet # Voids 3 1 2 # Bowel Movements 1 - Constitutional General appearance: Present: cooperative - Cardiovascular Rhythm: regular - Gastrointestinal General gastrointestinal: Present: soft - Labs CBC & Chem 7: 02/02/17 07:28 02/02/17 13:53 Labs: Abnormal Lab Results - Last 24 Hours (Table) 02/02/17 02/02/17 Range/Units 07:28 13:53 Potassium 3.0 L* (3.5-5.1) mmol/L Creatinine 0.44 L 0.50 L (0.52-1.04) mg/dL Glucose 69 L (74-99) mg/dL Total Bilirubin 1.5 H (0.2-1.3) mg/dL AST 131 H (14-36) U/L ALT 282 H (9-52) U/L Alkaline Phosphatase 286 H (38-126) U/L Total Protein 6.0 L (6.3-8.2) g/dL Albumin 3.3 L (3.5-5.0) g/dL Lipase 1023 H (23-300) U/L Microbiology - Last 24 Hours (Table) 01/31/17 15:11 Blood Culture - Preliminary Blood No Growth after 48 hours 01/31/17 15:05 Urine Culture - Final Urine,Clean Catch Assessment and Plan (1) Tobacco dependence Status: Acute (2) Cholelithiasis with choledocholithiasis Status: Acute (3) Pancreatitis Status: Acute Plan: Patient is having ERCP tomorrow LAp hannah to follow A, Likely friday
[2017-02-03] MEDS ORDERED: HYDROmorphone 1 MG/ML 1 ML SYRINGE ONE (02:45)
[2017-02-03 07:26] VITALS: RESP 20
[2017-02-03] MEDS: HYDROmorphone 1 MG/ML 1 ML SYRINGE IVP PRN ×2 (08:24→11:36)
[2017-02-03] MEDS: MEROPENEM 2 GM in SODIUM CHLORIDE 0.9% 100 ML IVPB SCH ×2 (08:26→17:52)
[2017-02-03] MEDS: HEPARIN SODIUM,PORCINE 5,000 UNIT/ML 1 ML VIAL SQ SCH (08:26)
[2017-02-03] MEDS: PANTOPRAZOLE 40 MG/10 ML VIAL IVP SCH (08:27)
[2017-02-03 09:25] LABS: ALT 204 U/L (9-52); AST 69 U/L (14-36); Alkaline Phosphatase 264 U/L (38-126); Amylase 34 U/L (30-110); Anion Gap 13 mmol/L; Blood Urea Nitrogen 8 mg/dL (7-17); Calcium 8.6 mg/dL (8.4-10.2); Carbon Dioxide 23 mmol/L (22-30); Chloride 104 mmol/L (98-107); Glucose 69 mg/dL (74-99); Non-African American GFR(MDRD) >60 (>60 ml/min/1.73 sqM); Potassium 3.3 mmol/L (3.5-5.1); Sodium 140 mmol/L (137-145); Total Protein 6.5 g/dL (6.3-8.2)
[2017-02-03 09:33] LABS: Basophils % (A) 0 %; CH 27.3; CHCM 33.3; Eosinophils # (A) 0.2 k/uL (0-0.7); Eosinophils % (A) 4 %; HCT 41.3 % (34.0-46.0); HGB 13.9 gm/dL (11.4-16.0); Luc # (Auto) 0.21; Luc % (Auto) 4; Lymphocytes # (A) 1.7 k/uL (1.0-4.8); Lymphocytes % (A) 33 %; MCH 27.7 pg (25.0-35.0); MCHC 33.7 g/dL (31.0-37.0); MCV 82.3 fL (80.0-100.0); Mean Platelet Volume 7.2; Monocytes # (A) 0.4 k/uL (0-1.0); Monocytes % (A) 7 %; Neutrophils # (A) 2.7 k/uL (1.3-7.7); Neutrophils % (A) 52 %; RBC 5.02 m/uL (3.80-5.40); RDW 14.8 % (11.5-15.5); WBC 5.3 k/uL (3.8-10.6); WBC (Perox) 5.45
[2017-02-03] MEDS ORDERED: INDOMETHACIN 50MG SUPPOSITORY RECTAL ONE (09:43)
--- NOTE | 2017-02-03 09:46 | P.PN ---
Subjective 51-year-old female being seen and evaluated this morning patient reports that the nausea sensation is improving but continues to have abdominal discomfort. States pain medication is effective for pain control. Patient is scheduled for an ERCP by dr scott service today tentatively scheduled for OR tomorrow for a lap cholecystectomy Objective - Vital Signs Vital signs: Vital Signs Temp 97.9 F 02/03/17 07:00 Pulse 79 02/03/17 07:00 Resp 20 02/03/17 07:00 BP 133/77 02/03/17 07:00 Pulse Ox 95 02/03/17 07:00 Intake & Output 02/02/17 02/03/17 02/03/17 18:59 06:59 18:59 Other: Voiding Method Toilet # Voids 2 1 - Exam Physical exam 51-year-old female seen and evaluated currently resting in bed oriented 3 appears in no acute distress Lungs essentially clear adequate air movement on room air Heart S1-S2 audible and regular Abdomen soft nontender not distended bowel tones present states urinating no difficulty reports a nausea sensation no active emesis Extremities no edema - Labs CBC & Chem 7: 02/03/17 08:22 02/03/17 08:22 Labs: Abnormal Lab Results - Last 24 Hours (Table) 02/02/17 Range/Units 13:53 Creatinine 0.50 L (0.52-1.04) mg/dL Glucose 69 L (74-99) mg/dL Microbiology - Last 24 Hours (Table) 01/31/17 15:11 Blood Culture - Preliminary Blood No Growth after 48 hours Assessment and Plan Plan: Impression Present on admission severe intractable epigastric pain right upper quadrant radiates across back with nausea vomiting with elevated lipase suspect due to acute pancreatitis lipase elevated 1914 on admission Persistent abdominal pain with gallbladder pancreatitis likely due to a retained common bile duct stone Recurrent episodes of abdominal pain left upper quadrant with nausea vomiting recently diagnosed with acute pancreatitis one month prior Current active smoker tobacco dependency greater than 20 year history 1 pack a day Present on admission acute persistent abdominal pain with acute pancreatitis likely due to Cholelithiasis with choledocholithiasis Present on admission severe acute pancreatitis with sars Plan Pain control ERCP today per Dr. Scott Scheduling February 04 lap [address] per Dr. Barrios likely Friday defer to the timing per Dr. Barrios Reinforce smoking cessation patient's been advised to stop smoking cigarettes DVT and GI prophylaxis IV antibiotic meropenem as ordered The above impression and plan of care have been discussed and directed by signing physician. Ana Silva nurse practitioner acting as scribe for signing physician.
[2017-02-03] MEDS: MORPHINE SULFATE ER 30 MG TABLET PO SCH (09:50)
[2017-02-03] MEDS: LISINOPRIL 20 MG TAB PO SCH (09:50)
[2017-02-03] MEDS ORDERED: LEVOFLOXACIN 500MG-D5W PMX 500 MG in DEXTROSE/WATER 1 100ML.BAG IVPB STA (09:51)
[2017-02-03] MEDS: DULoxetine HCL 60 MG CAPSULE.DR PO SCH (09:51)
[2017-02-03] MEDS: HYDROcodone/APAP 5-325MG 1 EACH TAB PO PRN ×2 (10:07→17:48)
--- NOTE | 2017-02-03 11:36 | PN ---
DATE OF SERVICE: 02/01/2017 This 51-year-old woman admitted with acute severe pancreatitis, also had features of cholecystitis. Dr. Barrios is planning follow up surgery after possible ERCP. Dr. Julian is also following the patient closely. The pain is slightly better. The patient enzymes are still elevated at this time. Retained CBD stone was a possibility. PAST MEDICAL HISTORY: Reviewed. REVIEW OF SYSTEMS: CARDIOVASCULAR: No angina. RESPIRATORY: As mentioned earlier. GI: As mentioned. : No dysuria. NERVOUS SYSTEM: No numbness or weakness. Current medications are reviewed and include: 1. Florence 5 mg q.6 p.r.n. 2. Cymbalta. 3. Heparin subcu b.i.d. 4. Dilaudid. 5. Zestril 40 mg. 6. Ativan 0.5 q.8 p.r.n. 8. Reglan 10. Protonix 40 mg b.i.d. 11. Restoril 15 mg q.h.s. PHYSICAL EXAMINATION: Alert and oriented x3. Pulse 88, blood pressure 170/63, respirations 16, temperature 97.6, pulse ox 90% on room air. T-max 101.4. HEENT: Conjunctivae normal. NECK: No jugular venous distention. CARDIOVASCULAR: S1, S2. RESPIRATIONS: Breath sounds diminished at the bases. Scattered rhonchi, no crackles. ABDOMEN: Soft, obese, nontender. Mild diffuse tenderness present. No guarding, no rigidity. No mass palpable. EXTREMITIES: No edema. NERVOUS SYSTEM: No focal deficits. LABS: WBC 10.2. Sodium 140, potassium 3.2. ASSESSMENT: 1. Acute severe pancreatitis. 2. Increased elevated liver function tests, possibly common bile duct stone. 3. History of possible acute cholecystitis. RECOMMENDATIONS AND DISCUSSION: I recommend to continue the current medications , continue monitoring, continue symptomatic treatment. Continue IV antibiotics. Continue the rest of the medications. See orders for details. Prognosis guarded. Further recommendations to follow. [facility]
[2017-02-03] MEDS ORDERED: PROPOFOL 10 MG/ML 20 ML VIAL IV ONE (14:28)
[2017-02-03] MEDS ORDERED: GLYCOPYRROLATE 0.2 MG/ML 2 ML VIAL ONE (14:28)
[2017-02-03] MEDS ORDERED: fentaNYL (PF) 50 MCG/ML 2 ML AMP ONE (14:28)
[2017-02-03] MEDS ORDERED: MIDAZOLAM 2 MG/2 ML VIAL ONE (14:28)
[2017-02-03] MEDS ORDERED: LIDOCAINE 1% INJ 10MG/ML (20 ML MDV) ONE (14:28)
[2017-02-03] MEDS ORDERED: IV FLUID CONTINUATION 1,000 ML IV ONE (14:30)
[2017-02-03] MEDS ORDERED: IOHEXOL 300 MG/ML 50 ML BOTTLE INJ ONE (15:03)
--- NOTE | 2017-02-03 15:19 | FL ---
EXAMINATION TYPE: FL ERCP DATE OF EXAM: 02/03/2017 CLINICAL HISTORY: Abnormal labs, possible CBD obstruction. TECHNIQUE: Fluoroscopy. COMPARISON: CT abdomen and pelvis from 3 days earlier. FINDINGS: Fluoroscopic guidance was provided during ERCP procedure performed by GI doctor, Dr. Julian. A total of 126 seconds of fluoroscopic time was utilized during the procedure and 3 spot images are acquired. There is successful opacification of pancreatic and common bile ducts without obvious mass or filling defect seen. Please refer to procedure note for further details as I was not present nor performed procedure. IMPRESSION: As Above.
--- NOTE | 2017-02-03 15:19 | P.PCN ---
Date of Procedure: 02/03/17 Preoperative Diagnosis: Postoperative Diagnosis: Procedure(s) Performed: Procedure: Endoscopic retrograde cholangiopancreatography ERCP Preoperative diagnosis: Gallstone pancreatitis. Postoperative diagnosis: No filling defects in the common bile duct to suggest retained common bile duct stone. Preparation and sedation: Was provided by anesthesia. Brief clinical history: The patient is a 51-year-old female who presents with severe abdominal pain with nausea and vomiting. She had similar presention a month ago with the same symptoms at [facility] where she was diagnosed having pancreatitis she was discharged. There is no history of fever or chills at this time or history of jaundice. There is some nausea vomiting no history of hematochezia hematemesis or melena. Patient had elevated amylase, lipase and liver enzymes including bilirubin. The details as summarized in the history and physical and dictated consultations and progress notes. The patient pain has improved and her liver enzymes have improved gradually. This evaluation is to assess for suspected retained common bile duct stone prior to cholecystectomy. Procedure: With the patient in the prone position and after informed consent and adequate sedation, I passed the Olympus video duodenoscope down the esophagus into the stomach then passed it through the pylorus into the duodenum and brought the papilla into view. There was a duodenal diverticulum in the vicinity. Cannulation resulted in opacification of the common bile duct as well as the pancreatic duct. I was then able to freely cannulate the common bile duct. The pancreatic duct appeared normal. The common bile duct was slightly dilated but there were no filling defects to suggest retained common bile duct stone. No sphincterotomy was performed. The patient tolerated the procedure well and did not have any immediate complications. Plan: The patient was reassured. Will allow full fluids. You could proceed with laparoscopic cholecystectomy as planned. Implants: Indications for Procedure: Operative Findings: Description of Procedure:
--- NOTE | 2017-02-03 16:03 | P.DS ---
Providers Date of admission: 01/31/17 10:09 Attending physician: Matti Mosher MD Consults: 01/31/17 10:03 Consult Physician Urgent Consulting Provider: Rodriguez Conklin Consult Reason/Comments: Cholecystitis Do you want consulting provider notified?: Yes Consult Physician Urgent Consulting Provider: Sae Julian Consult Reason/Comments: Choledocholithiasis with pancreatitis Do you want consulting provider notified?: Yes Primary care physician: Physician Nonstaff Hospital Course: This 51-year-old woman is admitted with features of acute severe pancreatitis. patient was treated conservatively with along with the surgery and gastroenterology. Amalase and lipase are significantly elevated at the time of admission. The patient was also seen by Dr. conklin. The patient also had a ERCP done by Dr. Molina. Recommended possible laparoscopic cholecystectomy done he has an outpatient. Currently patient is vital signs stable. Cardio versus system S1-S2 normal. Spelled system versus additional bases. Abdomen soft nontender no mass palpable. X Final diagnosis. 1. Acute severe pancreatitis with SIRS. 2. Increased LFTs improved status post ERCP showing no retained stones 3. History of pancreatitis. Plan - Discharge Summary New Discharge Prescriptions: Continue Omeprazole [PriLOSEC] 20 mg PO AC-BID Gabapentin [Neurontin] 300 mg PO TID DULoxetine HCL [Cymbalta] 120 mg PO DAILY Enalapril Maleate [Vasotec] 10 mg PO BID Sucralfate [Carafate] 1 gm PO ACHS amLODIPine BESYLATE [Norvasc] 5 mg PO DAILY Morphine Sulfate [Morphine Sulfate ER] 30 mg PO DAILY Atorvastatin Calcium [Lipitor] 40 mg PO HS Hydrocodone/Acetaminophen [[place] 10-325] 1 tab PO Q4H PRN PRN Reason: Pain Discharge Medication List Atorvastatin Calcium [Lipitor] 40 mg PO HS 01/31/17 [History] DULoxetine HCL [Cymbalta] 120 mg PO DAILY 01/31/17 [History] Enalapril Maleate [Vasotec] 10 mg PO BID 01/31/17 [History] Gabapentin [Neurontin] 300 mg PO TID 01/31/17 [History] Hydrocodone/Acetaminophen [[place] 10-325] 1 tab PO Q4H PRN 01/31/17 [History] Morphine Sulfate [Morphine Sulfate ER] 30 mg PO DAILY 01/31/17 [History] Omeprazole [PriLOSEC] 20 mg PO AC-BID 01/31/17 [History] Sucralfate [Carafate] 1 gm PO ACHS 01/31/17 [History] amLODIPine BESYLATE [Norvasc] 5 mg PO DAILY 01/31/17 [History] Follow up Appointment(s)/Referral(s): Nonstaff,Physician [Primary Care Provider] - 1-2 days Ambulatory/Diagnostic Orders: Complete Blood Count w/diff [LAB.AMB] Location: Determined By Patient Patient Instructions/Handouts: Pancreatitis (DC), Gallstones (DC), ERCP ( Endoscopic Retrograde Cholangiopancreatography) (DC) Activity/Diet/Wound Care/Special Instructions: diet soft bland low fat as tolerated, NPO AFTER MIDNIGHT DR. CONKLIN TO DO CHOLECYSTECTOMY TOMORROW. OR SCHEDULING WILL CALL PATIENT COUPON COLLECTION CLERK WITH FURTHER INSTRUCTION ON WHEN TO ARRIVE TO THE HOSPITAL.
[2017-02-03 17:36] VITALS: BP 124/83; TEMP 96.5
[2017-02-03 17:53] VITALS: PULSE 72
--- NOTE | 2017-02-03 23:14 | PN ---
DATE OF SERVICE: 02/02/2017 This 51-year-old woman who was admitted with acute severe pancreatitis and SIRS is being closely monitored. ERCP is being planned by Dr. Julian. No chest pain. No palpitations. No fever. On exam, alert and oriented x3. Pulse 77, blood pressure 121/60, respiration 16 , temperature 98.5, pulse ox 95% on room air. HEENT: Conjunctivae normal. NECK: No jugular venous distention. CARDIOVASCULAR: S1, S2 muffled. RESPIRATORY: Breath sounds diminished at the bases. No rhonchi. No crackles. ABDOMEN: Soft. Mild diffuse tenderness. LEGS: No edema. No swelling. NERVOUS SYSTEM: No focal deficit. LABS: Potassium 3 and 3.5. Total bilirubin is 1.5. AST, ALT are still elevated. Lipase is 1023, amylase 77. THC is positive. ASSESSMENT: 1. Acute severe pancreatitis with SIRS. 2. Cholelithiasis and choledocholithiasis, acute. 3. Increased AST, ALT, alkaline phosphatase. 4. Increased white count. 5. History of asthma and chronic obstructive pulmonary disease. 6. Hypertension, essential. 7. Hyperlipidemia. RECOMMENDATIONS AND DISCUSSION: I recommend to continue current medications, continue symptomatic treatment. Possible ERCP, laparoscopic cholecystectomy. Guarded prognosis. Further recommendations to follow. MTDD
== END 2017-02-03 19:32 | disposition home or self-care (01) | DRG 439 ==
LOC: EC 05:57 → 4MS4W 10:09
PROVIDERS: ADMIT Internal Medicine; ATTEND Internal Medicine
PROC: 0FJD8ZZ Inspection of Pancreatic Duct, Via Natural or Artificial Opening Endoscopic (ICD-10-PCS; principal; 2017-02-03 08:20)
DX: K85.90 Acute pancreatitis without necrosis or infection, unspecified (principal); R65.10 Systemic inflammatory response syndrome (SIRS) of non-infectious origin without acute organ dysfunction; I10 Essential (primary) hypertension; E78.5 Hyperlipidemia, unspecified; F17.200 Nicotine dependence, unspecified, uncomplicated; J44.9 Chronic obstructive pulmonary disease, unspecified; K21.9 Gastro-esophageal reflux disease without esophagitis; K57.10 Diverticulosis of small intestine without perforation or abscess without bleeding; G89.29 Other chronic pain; M47.9 Spondylosis, unspecified; M19.042 Primary osteoarthritis, left hand; M19.041 Primary osteoarthritis, right hand; J45.909 Unspecified asthma, uncomplicated; K80.20 Calculus of gallbladder without cholecystitis without obstruction; Z79.899 Other long term (current) drug therapy; Z88.8 Allergy status to other drugs, medicaments and biological substances; Z87.11 Personal history of peptic ulcer disease; Z82.49 Family history of ischemic heart disease and other diseases of the circulatory system
CPT/HCPCS: 36415; 43260; 71010; 74176; 74330; 76705; 80048; 80053; 80061; 80306; 81001; 82150; 82550; 82553; 83605; 83690; 83735; 84484; 85025; 85610; 87040; 87086; 96361; 96365; 96366; 96375; 96376; 99285